=== PATIENT | male | born 1975 | race Caucasian/White ===

== ENCOUNTER 2019-01-20 04:50 | Emergency (ER) | payer OTHER ==
--- NOTE | 2019-01-20 05:37 | EDM.PDOC ---
ED HPI GENERAL MEDICAL PROBLEM - General Chief Complaint: Back Pain or Injury Stated Complaint: "Having back spasms" Time Seen by Provider: 01/20/19 05:29 Source of Information: Reports: Patient - History of Present Illness INITIAL COMMENTS - FREE TEXT/NARRATIVE: Shane is an obese 43 year old male who presents to the ED via private vehicle with c/o right sided low back pain radiating to his right flank. He reports around 0130 this morning pain started and woke him from his sleep. He reports he did have some mild pain yesterday, for which he took Tylenol and Aleve, but pain worsened at 0130. He has not taken anything nor tried anything at home for the pain. He denies any abdominal pain, hematuria, urinary symptoms, N/V/D. Denies any injury to his back. Describes bowden as a constant dull pain, with episodes of sharp more severe pain. He reports it feels like a muscle spasm. Does have chronic low back pain. Rates pain a 5/10 at worst. Pain is made worse by movement. Onset: Today, Sudden Onset Date: 01/20/19 Onset Time: 01:30 Duration: Constant Location: Reports: Back Quality: Reports: Ache, Sharp Severity: Moderate Worsens with: Reports: Movement Context: Reports: Activity Associated Symptoms: Denies: Confusion, Chest Pain, Cough, cough w sputum, Diaphoresis, Fever/Chills, Headaches, Loss of Appetite, Malaise, Nausea/Vomiting , Rash, Seizure, Shortness of Breath, Syncope, Weakness Right Lower Back Pain Score (Numeric/FACES): 5 - Related Data Allergies Allergy/AdvReac Type Severity Reaction Status Date / Time No Known Allergies Allergy Verified 01/20/19 05:09 Home Meds: Home Meds Cyclobenzaprine [Flexeril] 10 mg PO TID PRN #30 tab 01/20/19 [Rx] Levothyroxine Sodium [Levo-T] 175 mcg PO DAILY 01/20/19 [History] Past Medical History - Past Surgical History Other HEENT Surgeries/Procedures: Thyroid surgery 1999. Social & Family History - Tobacco Use Smoking Status *Q: Never Smoker Second Hand Smoke Exposure: No ED ROS GENERAL - Review of Systems Review Of Systems: ROS reveals no pertinent complaints other than HPI. ED EXAM,LOWER BACK PAIN/INJURY - Physical Exam Exam: See Below Exam Limited By: No Limitations General Appearance: Alert, WD/WN, No Apparent Distress Eye Exam: Bilateral Eye: EOMI, PERRL Respiratory/Chest: No Respiratory Distress, Lungs Clear, Normal Breath Sounds, No Accessory Muscle Use, Chest Non-Tender Cardiovascular: Normal Peripheral Pulses, Regular Rate, Rhythm, No Edema, No Gallop, No JVD, No Murmur, No Rub GI/Abdominal: Normal Bowel Sounds, Soft, Non-Tender, No Organomegaly, No Distention, No Abnormal Bruit, No Mass Back Exam: Normal Inspection, CVA Tenderness (R), Decreased Range of Motion, Muscle Spasm (left). No: CVA Tenderness (L), Paraspinal Tenderness, Vertebral Tenderness Extremities: Normal Inspection, Normal Range of Motion, Non-Tender, No Pedal Edema, Normal Capillary Refill Neurological: Alert, Normal Mood/Affect, Normal Dorsiflexion, CN II-XII Intact, Normal Plantar Flexion, Normal Gait, No Motor/Sensory Deficits, Oriented x 3 Psychiatric: Normal Affect, Normal Mood Course - Vital Signs Last Recorded V/S: Last Vital Signs Temp 96.6 F 01/20/19 05:03 Pulse 80 01/20/19 05:03 Resp 20 01/20/19 05:03 BP 120/68 01/20/19 05:03 Pulse Ox 98 01/20/19 05:03 - Orders/Labs/Meds Orders: Active Orders 24 hr Category Date Time Status Abdomen Pelvis wo Cont [CT] Stat Exams 01/20/19 06:01 Taken Labs: Laboratory Tests 01/20/19 Range/Units 05:37 Urine Color Yellow (YELLOW) Urine Appearance Clear (CLEAR) Urine pH 6.0 (4.5-8.0) Ur Specific [place] 1.020 (1.003-1.020) Urine Protein Negative (NEGATIVE) mg/dL Urine Glucose (UA) Negative (NEGATIVE) mg/dL Urine Ketones Negative (NEGATIVE) mg/dL Urine Occult Blood Trace-lysed H (NEGATIVE) Urine Nitrite Negative (NEGATIVE) Urine Bilirubin Negative (NEGATIVE) Urine Urobilinogen 0.2 (0.2-1.0) EU/dL Ur Leukocyte Esterase Negative (NEGATIVE) Urine RBC 5-10 H (0-5) /HPF Urine WBC Not seen (0-5) /HPF Ur Squamous Epith Cells Occasional H (NOT SEEN) /HPF Urine Bacteria Occasional H (NOT SEEN) /HPF Urine Mucus Occasional H (NOT SEEN) /HPF Meds: Medications Discontinued Medications Generic Name Dose Route Start Last Admin Trade Name Freq PRN Reason Stop Dose Admin Sodium Chloride 1,000 mls @ 999 mls/hr 01/20/19 06:12 01/20/19 06:47 Normal Saline IV 01/20/19 07:12 999 mls/hr .BOLUS ONE Administration Ketorolac Tromethamine 30 mg 01/20/19 06:13 01/20/19 06:48 Toradol IVPUSH 30 mg Q6H PRN Administration Pain Orphenadrine Citrate 60 mg 01/20/19 05:45 01/20/19 05:43 Norflex IM 60 mg STAT EMILEE Administration - Re-Assessments/Exams Free Text/Narrative Re-Assessment/Exam: 01/20/19 06:04 Patient reports pain a 3/10 after Norflex. Does have some microscopic hematuria on UA. Will proceed with Ct abd/pelvis to r/o stone. Discussed this with patient who is agreeable. 01/20/19 08:[address] results with patient. CT shows significant degenerative changes of thoracic and lumbar spine. No other acute findings. Departure - Departure Time of Disposition: 09:23 Disposition: Home, Self-Care 01 Condition: Good Clinical Impression: Degenerative disc disease, lumbar, Degenerative disc disease, thoracic, Spasm of muscle of lower back - Discharge Information *PRESCRIPTION DRUG MONITORING PROGRAM REVIEWED*: Not Applicable *COPY OF PRESCRIPTION DRUG MONITORING REPORT IN PATIENT JUDE: Not Applicable Prescriptions: Cyclobenzaprine [Flexeril] 10 mg PO TID PRN #30 tab PRN Reason: back pain Instructions: Muscle Cramps and Spasms, [id number], Back Pain, Adult, Easy-to -Read Referrals: PCP,Unknown [Primary Care Provider] - Forms: ED Department Discharge Additional Instructions: 1) Flexeril 1 tab every 8 hours as needed. Can be picked up at pharmacy. 2) Alternate Tylenol and Aleve/ibuprofen as needed for pain 3) Ice/heat to affected area as needed for pain 4) Follow up in clinic for recheck if symptoms worsen or do not improve 5) May return to work. Activity as tolerated. - My Orders Last 24 Hours: My Active Orders 01/20/19 06:01 Abdomen Pelvis wo Cont [CT] Stat - Assessment/Plan Last 24 Hours: My Active Orders 01/20/19 06:01 Abdomen Pelvis wo Cont [CT] Stat
[2019-01-20] MEDS: Sodium Chloride 0.9% 1,000 ML IV ONE (06:47)
[2019-01-20] MEDS: Ketorolac 30 MG/ML SDV IVPUSH PRN (06:48)
== END 2019-01-20 09:45 | disposition home or self-care (01) ==
LOC: CC.ED 04:50
DX: M51.34 Other intervertebral disc degeneration, thoracic region (principal); M51.36 Other intervertebral disc degeneration, lumbar region; M62.830 Muscle spasm of back; Z79.899 Other long term (current) drug therapy
CPT/HCPCS: 74176; 81001; 96361; 96372; 96374; 99284; J1885; J2360; J7030

== ENCOUNTER 2023-01-31 11:52 | Inpatient (IN) | payer OTHER ==
[2023-01-31] MEDS ORDERED: Ibuprofen 200 MG Tab PO PRN (11:57)
[2023-01-31] MEDS ORDERED: Ondansetron 4 MG/2 ML SDV IV PRN (11:57)
[2023-01-31] MEDS ORDERED: Ondansetron 4 MG Tab.DIS PO PRN (11:57)
[2023-01-31] MEDS ORDERED: Sodium Chloride 0.9% 10 ML Syringe FLUSH PRN (11:57)
[2023-01-31] MEDS ORDERED: Acetaminophen 325 MG Tab PO PRN (11:57)
[2023-01-31] MEDS ORDERED: Sodium Chloride 0.9% 1,000 ML IV SCH (12:00)
[2023-01-31] MEDS ORDERED: cefTRIAXone 2 GM Vial IVPUSH ONE (12:17)
[2023-01-31 13:14] LABS: CORONAVIRUS COVID-19 NAA NEGATIVE (NEGATIVE); RESPIRATORY SYNCYTIAL VIR NAA NEGATIVE (NEGATIVE)
[2023-01-31] MEDS ORDERED: metroNIDAZOLE/Normal Saline 500 MG in Premix Bag 1 BAG IV ONE (15:51)
[2023-01-31] MEDS ORDERED: Enoxaparin 40 MG/0.4 ML Syringe SUBCUT SCH (20:00)
== END 2023-01-31 17:09 | DRG 603 ==
LOC: CC.MS 11:52 → UNDOADMIN 11:52 → CC.MS 11:57
PROVIDERS: ADMIT Nurse Practitioner Family; ATTEND Nurse Practitioner Family
DX: L03.317 Cellulitis of buttock (principal); E03.9 Hypothyroidism, unspecified; G47.30 Sleep apnea, unspecified; Z20.822 Contact with and (suspected) exposure to COVID-19; Z91.041 Radiographic dye allergy status; Z79.890 Hormone replacement therapy
CPT/HCPCS: 0241U; 36415; 72192; 72195; 80053; 81001; 83605; 85025; 86140; 87040; 99236; A9270-GY; J0696; J3490; J7030

== ENCOUNTER 2024-08-10 15:20 | Inpatient (IN) | payer OTHER ==
[2024-08-10 15:51] LABS: BASOPHILS ABSOLUTE AUTO 0.02 10^3/uL (0.00-0.50); BASOPHILS PERCENT AUTO 0.3 % (0-1); EOSINOPHILS ABSOLUTE AUTO 0.07 10^3/uL (0.00-1.50); HEMATOCRIT 46.4 % (42.0-52.0); HEMOGLOBIN 15.2 g/dL (14.0-18.0); IMMATURE GRAN ABSOLUTE AUTO 0.01 10^3/uL (0.00-0.49); IMMATURE GRAN PERCENT AUTO 0.1 % (0.0-4.9); LYMPHOCYTES ABSOLUTE AUTO 0.83 10^3/uL (0.60-5.00); LYMPHOCYTES PERCENT AUTO 11.3 % (24-44); MEAN CORPUSCULAR HEMOGLOBIN 29.9 pg (27.0-32.0); MEAN CORPUSCULAR HGB CONC 32.8 g/dL (32.0-36.0); MEAN CORPUSCULAR VOLUME 91.2 fL (83.0-97.0); MONOCYTES ABSOLUTE AUTO 0.09 10^3/uL (0.00-1.50); MONOCYTES PERCENT AUTO 1.2 % (0-10); NEUTROPHILS ABSOLUTE AUTO 6.33 x10^3/uL (1.80-8.00); NEUTROPHILS PERCENT AUTO 86.1 % (41-71); PLATELET COUNT,PLT 186 10^3/uL (150-400); RED BLOOD CELL COUNT 5.09 x10^6/uL (4.50-6.00); WHITE BLOOD CELL COUNT,WBC 7.4 10^3/uL (4.0-11.0)
[2024-08-10 15:53] LABS: APPEARANCE,URINE SLIGHTLY CLOUDY (CLEAR); BILIRUBIN,URINE NEGATIVE (NEGATIVE); COLOR,URINE YELLOW (YELLOW); GLUCOSE,URINE NEGATIVE (NEGATIVE); KETONES,URINE NEGATIVE (NEGATIVE); LEUKOCYTE ESTERASE,URINE MODERATE (NEGATIVE); NITRITE,URINE POSITIVE (NEGATIVE); OCCULT BLOOD,URINE LARGE (NEGATIVE); PH,URINE 6.5 (4.5-8.0); PROTEIN,URINE 100 mg/dL (NEGATIVE); UROBILINOGEN,URINE 0.2 EU/dL (0.2-1.0)
[2024-08-10 15:57] LABS: BACTERIA,URINE FEW /HPF (NOT SEEN); EPITHELIAL CELLS,URINE NOT SEEN /HPF (NOT SEEN); MUCUS,URINE FEW /HPF (NOT SEEN); WBC,URINE 40-50 /HPF (0-5)
[2024-08-10 16:16] LABS: ALBUMIN 3.9 g/dL (3.4-5.0); BILIRUBIN TOTAL 0.8 mg/dL (0.0-1.0); C-REACTIVE PROTEIN 5.12 mg/dL (<=0.50); CREATININE 1.3 mg/dL (0.7-1.3); EST CRCL DRUG DOSING (CG) 63.39 mL/min; MAGNESIUM 1.6 mg/dL (1.8-2.4); POTASSIUM,K 3.8 mEq/L (3.5-5.0); PROTEIN TOTAL,TP 7.8 g/dL (6.4-8.2)
[2024-08-10] MEDS: methylPREDNISolone Sodium Succinate 125 MG/2 ML SDV IVPUSH STA (16:18)
[2024-08-10] MEDS: Piperacillin/Tazobactam 4.5 GM in Sodium Chloride 0.9% 100 ML IV ONE (16:19)
[2024-08-10] MEDS: VANCOmycin 2 GM/400 ML 2 GM in Premix Bag 1 BAG IV ONE (17:20)
[2024-08-10] MEDS: Lactated Ringers 1,000 ML IV ONE (18:11)
[2024-08-10] MEDS: Sodium Chloride 0.9% 1,000 ML IV ONE (18:25)
[2024-08-10] MEDS ORDERED: Albuterol/Ipratropium 3.0-0.5 MG/3 ML Neb Soln NEB PRN (19:31)
[2024-08-10] MEDS ORDERED: Ondansetron 4 MG Tab.DIS PO PRN (19:31)
[2024-08-10] MEDS ORDERED: Docusate Sodium 100 MG Cap PO PRN (19:31)
[2024-08-10] MEDS ORDERED: Ondansetron 4 MG/2 ML SDV IV PRN (19:31)
[2024-08-10] MEDS ORDERED: Polyethylene Glycol 3350 Powder 17 GM Packet PO PRN (19:31)
[2024-08-10] MEDS: Lactated Ringers 1,000 ML IV STA (20:03)
[2024-08-10] MEDS: Acetaminophen 325 MG Tab PO PRN (21:14)
[2024-08-10] MEDS: Piperacillin/Tazobactam 4.5 GM in Sodium Chloride 0.9% 100 ML IV SCH (21:15)
[2024-08-10] MEDS: Lactated Ringers 1,000 ML IV SCH (23:48)
[2024-08-11] MEDS: Piperacillin/Tazobactam 4.5 GM in Sodium Chloride 0.9% 100 ML IV SCH ×2 (04:43→11:47)
[2024-08-11] MEDS ORDERED: VANCOmycin 2 GM/400 ML 400 ML IV SCH (05:00)
[2024-08-11] MEDS: VANCOmycin 2 GM/400 ML 400 ML IV SCH (05:33)
[2024-08-11] MEDS: Levothyroxine 100 MCG Tab PO SCH (06:53)
[2024-08-11] MEDS: Pantoprazole 40 MG Tab.CR PO SCH (09:37)
[2024-08-11] MEDS: Celecoxib 100 MG Cap PO SCH (09:37)
[2024-08-11 10:13] LABS: BASOPHILS ABSOLUTE AUTO 0.01 10^3/uL (0.00-0.50); BASOPHILS PERCENT AUTO 0.1 % (0-1); HEMATOCRIT 41.9 % (42.0-52.0); HEMOGLOBIN 13.8 g/dL (14.0-18.0); IMMATURE GRAN ABSOLUTE AUTO 0.03 10^3/uL (0.00-0.49); IMMATURE GRAN PERCENT AUTO 0.2 % (0.0-4.9); LYMPHOCYTES ABSOLUTE AUTO 0.65 10^3/uL (0.60-5.00); LYMPHOCYTES PERCENT AUTO 4.1 % (24-44); MEAN CORPUSCULAR HEMOGLOBIN 30.3 pg (27.0-32.0); MEAN CORPUSCULAR HGB CONC 32.9 g/dL (32.0-36.0); MEAN CORPUSCULAR VOLUME 91.9 fL (83.0-97.0); MONOCYTES ABSOLUTE AUTO 0.63 10^3/uL (0.00-1.50); NEUTROPHILS ABSOLUTE AUTO 14.42 x10^3/uL (1.80-8.00); NEUTROPHILS PERCENT AUTO 91.6 % (41-71); PLATELET COUNT,PLT 203 10^3/uL (150-400); RED BLOOD CELL COUNT 4.56 x10^6/uL (4.50-6.00); WHITE BLOOD CELL COUNT,WBC 15.7 10^3/uL (4.0-11.0)
[2024-08-11 10:26] LABS: CALCIUM 8.6 mg/dL (8.4-10.1); CREATININE 1.1 mg/dL (0.7-1.3); EST CRCL DRUG DOSING (CG) 74.92 mL/min; MAGNESIUM 1.7 mg/dL (1.8-2.4); POTASSIUM,K 3.8 mEq/L (3.5-5.0)
[2024-08-11] MEDS: Enoxaparin 40 MG/0.4 ML Syringe SUBCUT SCH (11:47)
[2024-08-12 07:47] LABS: CALCIUM 8.4 mg/dL (8.4-10.1); EST CRCL DRUG DOSING (CG) 82.41 mL/min; MAGNESIUM 2.3 mg/dL (1.8-2.4)
[2024-08-12 07:50] LABS: POTASSIUM,K 4.3 mEq/L (3.5-5.0)
[2024-08-12 07:51] LABS: BASOPHILS ABSOLUTE AUTO 0.02 10^3/uL (0.00-0.50); BASOPHILS PERCENT AUTO 0.2 % (0-1); EOSINOPHILS ABSOLUTE AUTO 0.09 10^3/uL (0.00-1.50); EOSINOPHILS PERCENT AUTO 0.7 % (0-6); HEMATOCRIT 43.5 % (42.0-52.0); HEMOGLOBIN 13.9 g/dL (14.0-18.0); IMMATURE GRAN ABSOLUTE AUTO 0.04 10^3/uL (0.00-0.49); IMMATURE GRAN PERCENT AUTO 0.3 % (0.0-4.9); LYMPHOCYTES ABSOLUTE AUTO 1.24 10^3/uL (0.60-5.00); LYMPHOCYTES PERCENT AUTO 9.6 % (24-44); MONOCYTES ABSOLUTE AUTO 1.17 10^3/uL (0.00-1.50); MONOCYTES PERCENT AUTO 9.1 % (0-10); NEUTROPHILS ABSOLUTE AUTO 10.29 x10^3/uL (1.80-8.00); NEUTROPHILS PERCENT AUTO 80.1 % (41-71); PLATELET COUNT,PLT 208 10^3/uL (150-400); RED BLOOD CELL COUNT 4.63 x10^6/uL (4.50-6.00); WHITE BLOOD CELL COUNT,WBC 12.9 10^3/uL (4.0-11.0)
== END 2024-08-12 10:35 | disposition home or self-care (01) | DRG 690 ==
LOC: CC.ED 15:20 → CC.MS 17:24 → UNDOADMIN 19:24 → CC.MS 19:24
PROVIDERS: ADMIT Nurse Practitioner; ATTEND Nurse Practitioner
DX: N39.0 Urinary tract infection, site not specified (principal); E87.20 Acidosis, unspecified; B96.20 Unspecified Escherichia coli [E. coli] as the cause of diseases classified elsewhere
CPT/HCPCS: 36415; 71045; 74176; 80048; 80053; 80202; 81001; 83605; 83690; 83735; 83880; 84484; 85025; 85379; 86140; 87040; 87086; 87088; 87186; 87428-QW; 93005; 93010; 96365; 96375; 99222; 99232; 99238; 99285-25; A9270-GY; J1650; J2543; J2919; J3372; J3490; J7030; J7120